=== PATIENT | female | born 1955 | race Caucasian/White ===

== ENCOUNTER 2016-06-24 08:56 | Inpatient (IN) | payer OTHER ==
[~2016-06-24] VITALS: Ht 162.6 cm; Wt 69.5 kg
[2016-06-24 14:30] VITALS: BP 168/90
[2016-06-24] MEDS ORDERED: TYLENOL REGULA325 MG PO (14:35)
[2016-06-24] MEDS ORDERED: BACLOFEN20 MG PO (14:36)
[2016-06-24] MEDS ORDERED: LOVENOX40 MG/0.4 SC (14:36)
[2016-06-24] MEDS ORDERED: LISINOPRIL40 MG PO (14:37)
[2016-06-24] MEDS ORDERED: ZESTORETIC 20-1 EAC1 PO (14:38)
[2016-06-24] MEDS ORDERED: HYDROCHLOROTHIA25 MG PO (14:38)
[2016-06-24] MEDS ORDERED: EFFEXOR XR150 MG PO (14:39)
[2016-06-24] MEDS ORDERED: WELLBUTRIN XL300 MG PO (14:39)
[2016-06-24] MEDS ORDERED: COLACE100 MG PO (14:43)
[2016-06-24] MEDS ORDERED: MIRALAX17 GM PO (14:43)
[2016-06-24] MEDS ORDERED: PREDNISONE10 MG PO (14:43)
[2016-06-24 16:02] VITALS: BP 174/87
[2016-06-24 17:47] VITALS: BP 111/75
[2016-06-24 23:39] VITALS: BP 119/57
[2016-06-25 05:29] VITALS: BP 111/59
[2016-06-25 05:39] LABS: HEMATOCRIT 42.3 % (36.0-46.0); MCHC 32.9 G/DL (30.0-36.0); MCV 85.3 FL (83-99); MEAN PLAT.VOLUME 9.6 uM^3 (9.5-12.4); PLATELET COUNT 502 K/uL (156-360); RBC DIS.WIDTH-CV 12.5 % (11.8-14.6); RBC DIS.WIDTH-SD 38.5 % (39-53); RED BLOOD COUNT 4.96 M/uL (3.80-5.20); WHITE BLOOD COUNT 11.2 K/uL (4.1-10.2)
[2016-06-25 06:09] LABS: ALKALINE PHOSPHATASE 83 IU/L (3-129); ANION GAP 11 MEQ/L (2-14); CHLORIDE 98 MEQ/L (99-109); GFR ESTIMATE (CALCULATED) > 59 mL/min/; GLUCOSE 90 mg/dL (70-99); POTASSIUM 2.9 MEQ/L (3.7-5.4); SAMPLE HEMOLYSIS CHECK 0; SAMPLE ICTERIC CHECK 0; SAMPLE LIPEMIA CHECK 0; SODIUM 138 MEQ/L (136-147); TOTAL BILIRUBIN 0.6 MG/DL (0.0-1.0); UREA NITROGEN (BUN) 18 mg/dL (9-23)
[2016-06-25 09:47] VITALS: BP 103/64
[2016-06-25 16:28] VITALS: BP 143/85
[2016-06-26 05:16] LABS: CHLORIDE 103 mEq/L (99-109); POTASSIUM 3.4 mEq/L (3.7-5.4); SODIUM 138 mEq/L (136-147)
[2016-06-26 05:18] LABS: GLUCOSE 89 mg/dL (70-99)
[2016-06-26 05:19] LABS: ANION GAP 8 MEQ/L (2-14)
[2016-06-26 05:22] LABS: GFR ESTIMATE (CALCULATED) > 59 mL/min/; UREA NITROGEN (BUN) 14 mg/dL (9-23)
[2016-06-26 05:42] VITALS: BP 127/66
[2016-06-26 07:12] VITALS: BP 133/77
[2016-06-26 15:31] VITALS: BP 138/85
[2016-06-27 04:52] VITALS: BP 130/71
[2016-06-27 10:07] VITALS: BP 128/74
[2016-06-27 15:00] VITALS: BP 151/87
[2016-06-27 16:00] VITALS: BP 105/58; BP 151/87
[2016-06-28 04:54] VITALS: BP 139/78
[2016-06-28 10:22] VITALS: BP 129/80
[2016-06-28 15:25] VITALS: BP 130/83
[2016-06-29 05:42] VITALS: BP 120/68
[2016-06-29 15:27] VITALS: BP 134/81
[2016-06-30 05:41] VITALS: BP 117/71
[2016-06-30 16:00] VITALS: BP 155/83
[2016-07-01 05:25] LABS: HEMATOCRIT 39.7 % (36.0-46.0); MCH 28.1 PG (29.0-34.0); MCHC 32.7 G/DL (30.0-36.0); MCV 85.7 FL (83-99); MEAN PLAT.VOLUME 9.5 uM^3 (9.5-12.4); PLATELET COUNT 482 K/uL (156-360); RBC DIS.WIDTH-CV 12.6 % (11.8-14.6); RBC DIS.WIDTH-SD 39.1 % (39-53); RED BLOOD COUNT 4.63 M/uL (3.80-5.20); WHITE BLOOD COUNT 13.9 K/uL (4.1-10.2)
[2016-07-01 05:40] VITALS: BP 100/61
[2016-07-01 06:02] LABS: ALKALINE PHOSPHATASE 84 IU/L (3-129); ANION GAP 8 MEQ/L (2-14); CHLORIDE 99 MEQ/L (99-109); GFR ESTIMATE (CALCULATED) > 59 mL/min/; GLUCOSE 77 mg/dL (70-99); POTASSIUM 3.6 MEQ/L (3.7-5.4); SAMPLE HEMOLYSIS CHECK 0; SAMPLE ICTERIC CHECK 0; SAMPLE LIPEMIA CHECK 0; SODIUM 137 MEQ/L (136-147); UREA NITROGEN (BUN) 15 mg/dL (9-23)
[2016-07-01 06:04] LABS: TOTAL BILIRUBIN 0.8 MG/DL (0.0-1.0)
[2016-07-01 08:27] VITALS: BP 117/62
[2016-07-01 15:24] VITALS: BP 133/84
[2016-07-02 05:47] VITALS: BP 134/67
[2016-07-02] MEDS ORDERED: MIRALAX17 GM PO (12:40)
[2016-07-02] MEDS ORDERED: HYDROCHLOROTHIA25 MG PO (12:55)
== END 2016-07-02 14:03 | DRG 946 ==
LOC: 3WEST 08:56
PROVIDERS: Physical Medicine & Rehabilitation Pain Medicine
PROC: F07M0ZZ Range of Motion and Joint Mobility Treatment of Musculoskeletal System - Whole Body (ICD-10-PCS; principal; 2016-06-24)
DX: R53.1 Weakness (principal); G35 Multiple sclerosis; E78.5 Hyperlipidemia, unspecified; I10 Essential (primary) hypertension; Z91.81 History of falling; R55 Syncope and collapse; D47.3 Essential (hemorrhagic) thrombocythemia; R26.2 Difficulty in walking, not elsewhere classified; E87.6 Hypokalemia
CPT/HCPCS: 80048; 80053; 85027; 97110 GO; 97530 GP; J1650; J7512